=== PATIENT | female | born 1965 | race Caucasian/White ===

== ENCOUNTER 2025-06-14 11:33 | Outpatient (OUT) | payer BC, SELFPAY ==
--- OUTSIDE RECORDS SUMMARY | 2025-06-14 11:40 | XMS_ITS | Clinical Summary ---
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 Name Role Phone Unavailable Primary Care Provider Unavailabl e Social History Tobacco UseTypesPacks/DayYears UsedDateSmoking Tobacco: Never Assessed CommentsUnknownSex and Gender InformationValueDate RecordedSex Assigned at Not on fileLegal WmxUyxxer97/15/2023 11:19 PM EDTGender IdentityNot on file Sexual OrientationNot on file Last Filed Vital Signs Vital SignReadingTime TakenCommentsBlood Odqpqcck784/84418 12:00 PM EDT Pulse--Temperature--Respiratory Rate--Oxygen Saturation--Inhaled Oxygen Concentration--Cxcwvm70.2 kg (157 lb)02/22/2021 12:00 PM OSIVnnloq145.3 cm (5' 3.5 )02/22/2021 12:00 PM EDTBody Mass Index27.3809 12:00 PM EDT Plan of Treatment Not on file
--- OUTSIDE RECORDS SUMMARY | 2025-06-14 11:40 | XMS_ITS | Clinical Summary ---
Author Organization [employer] tem Address [id number] [address] [place] [address] Care Team Providers Care Process Treater Name Role Phone Dl Crouch Ana FLETCHER Primary Care Provider [phone] Allergies Active AllergyReactionsCriticalityNoted DateCommentsNo Known Drug Allergies 01/03/2017 Medications MedicationSigDispense QuantityRefillsLast FilledStart DateEnd DateStatus lamoTRIgine (LaMICtal) 200 mg tablet One tab po q hs; 1/2 tab po q am 135 tablet Active Additional Information Patient taking differently: 200 mg Daily, One tab po q hs; 1/2 tab po q am, Reported on 10/15/2022 venlafaxine XR (EFFEXOR-XR) 225 mg tablet extended release 24hr 24 hr tablet Take 425 mg by mouth.01/24/2019Active ibuprofen (ADVIL,MOTRIN) 200 mg tablet Take 1 tablet (200 mg total) by mouth every 6 (six) hours as needed for pain. Active polyethylene glycol (GLYCOLAX) 17 gram/dose powder Take 17 g by mouth as needed.Active losartan (COZAAR) 25 mg tablet Take 1 tablet (25 mg total) by mouth.Active cloNIDine (CATAPRES) 0.1 mg tablet Clonidine Hcl Active 0.1 MG PO Twice daily 60 30 January 28, 2024 12:00am 4Active Active Problems ProblemNoted DateDiagnosed DateRecurrent depressive disorder, current episode mild01/29/2017 Overview (01/29/2017): improving Immunizations ImmunizationAdministration DatesNext DueCOVID-19, mRNA, LNP-S, PF, 100mcg/0.5mL Dose09/21/2020,08/24/2020 Family History Medical HistoryRelationNameCommentsArthritisFatherTompsoraiatic and Osteo DiabetesFatherTomType 2 non insulin dependentHypertensionFatherTomTransient ischemic attackFatherTomBreast cancerMaternal AuntMaryCancerMotherMillienon- small cell carcinomaHypertensionMotherMillieKidney diseaseMotherMilliemalignant tumor in one, removed 1989, malignant tumor in remaining- cryoablationLung cancerMotherMillienon small cell/Miscarriages / GntqugvlgjgWmzvpbCzzizv9Szfuq cancerNeg HxOvarian cancerNeg HxPancreatic cancerNeg HxProstate cancerNeg Hx Uterine cancerNeg HxRelationNameStatusCommentsFatherTomMaternal AuntMaryDeceased MotherMillieDeceased Social History Tobacco UseTypesPacks/DayYears UsedDateSmoking Tobacco: NeverSmokeless Tobacco: Never Tobacco Cessation:Counseling Given: Not Answered Alcohol UseStandard Drinks/WeekCommentsYes3 (1 standard drink = 0.6 oz pure alcohol)AUDIT-CAnswerDate RecordedQ1: How often do you have a drink containing alcohol?2-3 times a week01/21/2024Q2: How many drinks containing alcohol do you have on a typical day when you are drinking?1 or Q3: How often do you have six or more drinks on one occasion?Never01/21/2024HQ-2AnswerDate Recorded Total Qjxvp93801/21/2024hildcareAnswerDate StwwbaiaYcfjqimvuCpzbxdy39/12/2019 EmploymentAnswerDate VscwwxcwSijezfbnopMfccyar58/12/2019Hunger ScreeningAnswer Date RecordedWithin the past 12 months we worried whether our food would run out before we got money to buy more.Never True01/21/2024Within the past 12 months the food we bought just didn't last and we didn't have money to get more.Never True01/21/2024urpose - LifeAnswerDate RecordedPurpose and direction in life Pamsjck2706/27/2020CommentsNoSex and Gender InformationValueDate Recorded Sex Assigned at BirthNot on fileLegal QxjGszmgt03/06/2015 11:49 AM EDTGender IdentityNot on fileSexual OrientationNot on file Last Filed Vital Signs Vital SignReadingTime TakenCommentsBlood Yqaganyq048/8402/03/2024 11:34 AM EDT Ohnhy139808/04/2023 9:50 AM TYQTjosauiroen92.7 ??C (98 ??F)08/04/2023 7:37 AM EST Respiratory Xxjc758308/04/2023 9:50 AM ESTOxygen Khhwozkzlj287%08/04/2023 9:50 AM ESTInhaled Oxygen Concentration--Qeghbg15.7 kg (171 lb 3.2 oz)02/03/2024 11:34 AM JFVYxlsmm345 cm (5' 3 )02/03/2024 11:34 AM EDTBody Mass Index30.3308 11:34 AM EDT Plan of Treatment Health MaintenanceDue DateLast DoneCommentsZoster (Shingles) Vaccine (1 of 2) 2014Depression Xbrgawxot74/dult BMI Gdbjtxxcw14/20/2025 02/03/2024Tobacco Tzdkhkrxt94/OVID-19 Vaccine ( season)504/01/2021, 08/24/2020Influenza Sdmhcbn83/05/2018, 03/27/2018Pap Smear606/, 12/03/2022, 01/27/2018, Additional history qprjgmGwwgeboentq33/19/202902/, 08/04/2023TaP,Tdap and Td Vaccines (2 - Td or Tdap)/, 08/17/2010RSV ( or age 60+ yrs) (1 - 1-dose 75+ series)2039 Medical Devices Not on file Procedures Procedure NamePriorityDate/TimeAssociated AopdnzwyoFnezzqlyLDOFNUYUWBV55/19/2024 8:52 AM EST HIGH RISK HPV W/QPUHZhcsfbt42/20/2023 5:59 AM EDT Cervical smear, as part of routine gynecological examination from Last 3 Months or Most Recently Relevant to Health Maintenance Results * Colonoscopy (08/04/2023 8:52 AM EST)Specimen (Source)Anatomical Location / LateralityCollection Method / VolumeCollection TimeReceived Time08/04/2023 8:52 AM EST Narrative PM CARDIOVASCULAR - 08/04/2023 9:18 AM EST [facility] Patient Name: Vianca Naidu ?? Procedure Date No Time: 08/04/2023 ?? CSN : [id number] Date of : 1965 Admit Type: Outpatient Age: 58 Room: [place] [address] Gender: Female Note Status: Finalized Attending MD: Nils Decker DO, Procedure: ? Colonoscopy Indications: ? Rectal bleeding Providers: ? Nils Decker DO Referring MD: ?Nils Decker DO Medicines: ? Propofol per Anesthesia Complications: ? No immediate complications. Procedure: ? After I obtained informed consent, the scope was ? passed under direct vision. Throughout the procedure, ? the patient's blood pressure, pulse, and oxygen ? saturations were monitored continuously. The OLYMPUS ? [id number] #[id number] ADULT COLONOSCOPE was introduced ? through the anus and advanced to the cecum, identified ? by appendiceal orifice and ileocecal valve. The ? colonoscopy was performed without difficulty. The ? patient tolerated the procedure well. The quality of ? the bowel preparation was excellent. Findings: ? The perianal and digital rectal examinations were normal. ? A 7 mm polyp was found in the recto-sigmoid colon. The polyp was ? sessile. The polyp was removed with a hot snare. Resection and retrieval ? were complete. ? The exam was otherwise without abnormality on direct and retroflexion ? views. Estimated Blood Loss: ??Estimated blood loss: none. Impression: ?- One 7 mm polyp at the recto-sigmoid colon, removed ? with a hot snare. Resected and retrieved. ? - The examination was otherwise normal on direct and ? retroflexion views. Recommendation: ?- Discharge patient to home. ? - Patient has a contact number available for ? emergencies. The signs and symptoms of potential ? delayed complications were discussed with the patient. ? Return to normal activities tomorrow. Written ? discharge instructions were provided to the patient. ? - Repeat colonoscopy in 5 years for surveillance based ? on pathology results. ? - Return to my office PRN. Procedure Code(s): ? --- Professional --- ? 57264, Colonoscopy, flexible; with removal of ? tumor(s), polyp(s), or other lesion(s) by snare ? technique Diagnosis Code(s): ? --- Professional --- ? D12.7, Benign neoplasm of rectosigmoid junction ? K62.5, Hemorrhage of anus and rectum CPT copyright 2021 [employer]. All rights reserved. The codes documented in this report are preliminary and upon pilot plant operator helper review may be revised to meet current compliance requirements. DO Nils Cedeno DO 08/04/2023 9:18:17 AM Number of Addenda: 0 Note Initiated On: 08/04/2023 8:52 AM Procedure Note Nils Decker DO - 08/04/2023 [facility] Patient Name: Vianca Naidu Procedure Date No Time: 08/04/2023 CSN : [id number] Date of : 1965 Admit Type: Outpatient Age: 58 Room: [place] [address] Gender: Female Note Status: Finalized Attending MD: Nils Decker DO, Procedure: Colonoscopy Indications: Rectal bleeding Providers: Nils Dceker DO Referring MD: Nils Decker DO Medicines: Propofol per Anesthesia Complications: No immediate complications. Procedure: After I obtained informed consent, the scope was passed under direct vision. Throughout theprocedure, the patient's blood pressure, pulse, and oxygen saturations were monitored continuously. [facility] [id number] #[id number] ADULT COLONOSCOPE was introduced through the anus and advanced to the cecum,identified by appendiceal orifice and ileocecal valve. The colonoscopy was performed without difficulty. The patient tolerated the procedure well. The qualityof the bowel preparation was excellent. Findings: The perianal and digital rectal examinations were normal. A 7 mm polyp was found in the recto-sigmoid colon. The polyp was sessile. The polyp was removed with a hot snare. Resection andretrieval were complete. The exam was otherwise without abnormality on direct and retroflexion views. Estimated Blood Loss: Estimated blood loss: none. Impression: - One 7 mm polyp at the recto-sigmoid colon,removed with a hot snare. Resected and retrieved. - The examination was otherwise normal on directand retroflexion views. Recommendation: - Discharge patient to home. - Patient has a contact number available for emergencies. The signs and symptoms of potential delayed complications were discussed with thepatient. Return to normal activities tomorrow. Written discharge instructions were provided to thepatient. - Repeat colonoscopy in 5 years for surveillancebased on pathology results. - Return to my office PRN. Procedure Code(s): --- Professional --- 45871, Colonoscopy, flexible; with removal of tumor(s), polyp(s), or other lesion(s) by snare technique Diagnosis Code(s): --- Professional --- D12.7, Benign neoplasm of rectosigmoid junction K62.5, Hemorrhage of anus and rectum CPT copyright 2021 [employer]. All rights reserved. The codes documented in this report are preliminary and upon pilot plant operator helper reviewmay be revised to meet current compliance requirements. DO Nils Cedeno DO 08/04/2023 9:18:17 AM Number of Addenda: 0 Note Initiated On: 08/04/2023 8:52 AM Authorizing ProviderResult TypeResult StatusMicryan BREAUX PROCEDURE ORDERABLESFinal ResultPerforming OrganizationAddressCity/State/ZIP CodePhone Number PM CARDIOVASCULAR * High risk HPV w/trish (12/03/2022 5:59 AM EDT)ComponentValueRef RangeTest MethodAnalysis TimePerformed AtPathologist SignatureHpv specimen typeThinPrep 12/04/2022 5:59 AM [facility]FAB[facility]OLA [facility]ITALHpv 16NegativeNegative^Negative 12/06/2022 6:08 AM [facility] LABHpv 18Negative Negative^Ahbjaatu78/23/2023 6:08 AM [facility] LABOther high risk hpvNegativeNegative^Vddgzvth40/23/2023 6:08 AM [facility] LABComment: HPV types 31,33,35,39,45,52,56,58,59,66 and 68 DNA were undetectable. Specimen (Source)Anatomical Location / LateralityCollection Method / Volume Collection TimeReceived HlteARLMA53/20/2023 5:59 AM EDT12/04/2022 6:00 AM EDT Narrative Authorizing ProviderResult TypeResult StatusCoriana ROGERS BLOOD ORDERABLESFinal ResultPerforming OrganizationAddressCity/State/ZIP CodePhone Number [address] [place] [address] [facility] [address] [place] [address], [address] [place] [address] from Last 3 Months or Most Recently Relevant to Health Maintenance Insurance Care Teams Team MemberRelationshipSpecialtyStart [place] [address] [place] [address] [id number] [facility] - General02/05/18
--- NOTE | 2025-06-14 11:44 | XR_ITS ---
The [address] [address] Patient Name: CRUZ GREEN MRN: [id number] date: 1965 Sex: F Assigned Patient Location: [facility] Current Patient Location: [facility] Accession/Order Number: [id number] Exam Date: 06/14/2025 11:57 Report Date: 06/14/2025 12:52 At the request of: RYLAN MARIE DO Procedure: XR knee LT 4V LEFT KNEE - 4 views COMPARISON: None CLINICAL DATA: Chronic left knee pain and swelling. Francois's cyst. Weightbearing AP, lateral and both oblique views were obtained. A marker was placed at the site of patient's symptoms. There is no acute fracture or dislocation. There is mild to moderate narrowing at the medial tibiofemoral joint compartment where marginal spurring is seen. There is also minor spurring at the lateral and patellofemoral compartments. There is a tiny joint effusion. No other soft tissue abnormalities are noted. XR/XR knee LT 4V IMPRESSION: MILD DEGENERATIVE CHANGES. TINY KNEE EFFUSION. IF FURTHER ASSESSMENT IS WARRANTED FOR FRANCOIS'S CYST, FOLLOW-UP WITH ULTRASOUND OR MRI COULD BE CONSIDERED. Impression dictated by: Hawa Martini M.D. 06/14/2025 12:52 PM Dictation Location: [place] [address] Electronically authenticated by: [id number] Y Date: 06/14/2025 12:52
== END 2025-06-14 11:34 | disposition home or self-care (01) ==
LOC: RAD 11:38
PROVIDERS: PCP Internal Medicine; Visit Provider Internal Medicine
DX: M25.562 Pain in left knee (principal); M71.22 Synovial cyst of popliteal space [Baker], left knee
CPT/HCPCS: 73564